=== PATIENT | male | born 2000 | race Two or more races ===

== ENCOUNTER 2022-09-17 05:49 | Emergency (ER) | payer OTHER ==
[~2022-09-17] VITALS: Ht 165.1 cm; Wt 159.1 kg
[2022-09-17 07:13] LABS: Basophils # (auto) 0 10 ^3/uL (0-0.2); Basophils % (auto) 0.2 % (0.0-2.0); Eosinophils # (auto) 0 10 ^3/uL (0-0.8); Hematocrit 43.9 % (41.0-53.0); Hemoglobin 15.1 g/dL (13.5-17.5); Lymphocytes # (auto) 2.4 10 ^3/uL (0.4-5.4); Mean Corpuscular Hemoglobin 29.3 pg (28.0-32.0); Mean Corpuscular Hgb Conc. 34.4 g/dL (32.0-36.0); Monocytes # (auto) 1.8 10 ^3/uL (0-1.3); Monocytes % (auto) 6.8 % (0.0-12.0); Neutrophils # (auto) 22.4 10 ^3/uL (1.6-8.6); Nucleated Red Blood Cells % 0.1 %; Red Blood Cells 5.17 10^6/uL (4.5-5.90); Red Cell Distribution Width 13.6 % (11.8-14.3); White Blood Cell 26.7 10^3/uL (4.4-10.8)
[2022-09-17 07:24] LABS: INR 1.11 (0.9-1.15); Partial Thromboplastin Time 25.3 SEC (24.5-34.5)
[2022-09-17 07:39] LABS: Calcium 8.5 mg/dL (8.5-10.1); Potassium 3.9 mmol/L (3.5-5.1)
[2022-09-17 07:44] LABS: BUN/Creatinine Ratio 11.5 (10.0-20.0); Bilirubin, Total 0.6 mg/dL (0.2-1.0); Total Protein 7.6 g/dL (6.4-8.2)
[2022-09-17] MEDS ORDERED: IOHEXOL 300 MG/ML 100ML BOTTLE IJ ONE (07:49)
[2022-09-17] MEDS ORDERED: LIDOCAINE 1% HCL (LOCAL ANESTH.) INJ 20ML MDV IJ ONE (09:30)
[2022-09-17] MEDS ORDERED: cefTRIAXone 1GM/50ML D5W 50 ML IV ONE (10:00)
[2022-09-17 10:25] VITALS: PULSE 90; RESP 18; O2SAT 99
[2022-09-17 10:27] VITALS: BP 120/75; PULSE 90; RESP 18; TEMP 98.2; O2SAT 99
== END 2022-09-17 10:32 | disposition home or self-care (01) ==
LOC: ER 05:49 → EDBD 05:49 → ER 10:32
DX: S81.012A Laceration without foreign body, left knee, initial encounter (principal); V89.2XXA Person injured in unspecified motor-vehicle accident, traffic, initial encounter; Y93.89 Activity, other specified; Y92.89 Other specified places as the place of occurrence of the external cause; Y99.8 Other external cause status
CPT/HCPCS: 12001; 29505; 36415; 70450; 71260; 72125; 73120; 73560; 74177; 80053; 80320; 84484; 85025; 85610; 85730; 96365; 99285; J0696; J2001; Q9967

== ENCOUNTER 2022-10-06 13:27 | Emergency (ER) | payer SELFPAY ==
[~2022-10-06] VITALS: Ht 167.6 cm; Wt 117.4 kg
[2022-10-06] MEDS ORDERED: MAX35OO TOP (15:36)
[2022-10-06 15:59] VITALS: BP 116/76; PULSE 78; RESP 16; TEMP 98.1; O2SAT 97
[2022-10-06] MEDS ORDERED: NEOMYCIN-BACITRACIN-POLYM UNITDOSE PKG TOP OINT TOP ONE (16:00)
== END 2022-10-06 16:02 | disposition home or self-care (01) ==
LOC: ER 13:27
DX: S81.012D Laceration without foreign body, left knee, subsequent encounter (principal); X58.XXXD Exposure to other specified factors, subsequent encounter